=== PATIENT | female | born 1935 | race Caucasian/White ===

== ENCOUNTER → 2018-01-26 | Outpatient (CLI) | payer MEDICARE, BC ==
[~2018-01-26] MED LIST: ALEN10; ASPI81EC PO; BACITO TOP; CALCAVITDA PO; FOLI400 PO; LEVFLO500 PO; METF500 PO; MULVITMINF PO; PHENA200 PO; TOLT2
== END ==
LOC: LAB SHORT 16:44 → LAB 16:44
DX: L08.9 Local infection of the skin and subcutaneous tissue, unspecified (principal)
CPT/HCPCS: 87070; 87205

== ENCOUNTER 2019-02-01 08:31 | Day surgery (SDC) | payer MEDICARE, BC | END 2019-02-01 22:51 | disposition home or self-care (01) | LOC: MOI US 08:31 | DX: C50.911 Malignant neoplasm of unspecified site of right female breast (principal); Z17.0 Estrogen receptor positive status [ER+] | CPT/HCPCS: 19083; 77065; 88305; 88342; 88360; A4648 ==

== ENCOUNTER 2019-03-15 03:44 | Day surgery (SDC) | payer MEDICARE, BC ==
[2019-03-16] MEDS ORDERED: ERGO400 PO (15:42)
== END 2019-03-15 22:44 | disposition home or self-care (01) ==
LOC: MOI US 03:44
DX: C50.811 Malignant neoplasm of overlapping sites of right female breast (principal)
CPT/HCPCS: 19285; 77065

== ENCOUNTER 2019-04-09 07:51 | Day surgery (SDC) | payer MEDICARE, BC ==
[~2019-04-09] VITALS: Ht 165.1 cm; Wt 62.0 kg
[~2019-04-09 07:51] MED LIST changes: +ASCO500 PO; +CENTRUM SILVER1 EAC2 PO; +Combigan Eye Dro5 ML BOTHEYES; +ERGO400 PO; +HAIR FORMULA T1 EACH PO; +TUMS500 MG PO
--- NOTE | 2019-04-09 09:01 | NUR ---
SPOKE TO PATIENT IN RADIOLOGY WAITING ROOM ABOUT ALLERGIES/MEDICATIONS. PATIENT DENIES ALLERGY TO LISINOPRIL AND REQUESTS IT TO BE REMOVED FROM ALLERGY LIST.
--- NOTE | 2019-04-09 09:46 | NUR ---
Ambulatory in Day Surgery. History, Chart, Medications and Allergies reviewed before start of procedure. Lungs clear T/O to Auscultation. Patient confirms NPO status and agrees with scheduled surgery. Pre-Op teaching done. Pt verbalizes understanding. Patient States Post-Procedure ride home has been arranged.
--- NOTE | 2019-04-09 13:06 | NUR ---
PT REPORT TO LU[facility]S AT 1240. PT AWAKE AND TOLERATING PO WITHOUT DIFFICULTY, VSS. DRESSING TO R BREAST REMAINED CDI.
--- NOTE | 2019-04-09 13:30 | NUR ---
Discharge instructions reviewed with patient. Patient verbalizes understanding. Copy given to patient to take home. Discharged via wheelchair to private car for ride home. 1 [place] given for pain prior to discharge.
== END 2019-04-10 00:04 | disposition home or self-care (01) ==
LOC: ORSCMMR 07:51
PROVIDERS: Surgery
PROC: 0HBT0ZZ Excision of Right Breast, Open Approach (ICD-10-PCS; principal; 2019-04-09 09:45)
PROC: 07B50ZX Excision of Right Axillary Lymphatic, Open Approach, Diagnostic (ICD-10-PCS; principal; 2019-04-09 09:45)
DX: C50.811 Malignant neoplasm of overlapping sites of right female breast (principal); D36.0 Benign neoplasm of lymph nodes; E11.22 Type 2 diabetes mellitus with diabetic chronic kidney disease; N18.9 Chronic kidney disease, unspecified
CPT/HCPCS: 38792; 76098; 82947; 88307; 88342; A9270-GY; A9520; J0690; J1100; J2405; J2704; J3010; J7120; Q9968

== ENCOUNTER → 2019-04-12 | Outpatient (CLI) | payer MEDICARE, BC | END | disposition home or self-care (01) | LOC: LAB SHORT 15:09 → LAB 15:09 | DX: D48.5 Neoplasm of uncertain behavior of skin (principal) | CPT/HCPCS: 88305 ==

== ENCOUNTER 2019-05-03 10:54 | Day surgery (SDC) | payer MEDICARE, BC ==
[~2019-05-03] VITALS: Ht 165.1 cm; Wt 62.0 kg
--- NOTE | 2019-05-03 11:26 | NUR ---
Ambulatory in Day Surgery History, Chart, Medications and Allergies reviewed before start of procedure. Lungs clear T/O to Auscultation. Patient confirms NPO status and agrees with scheduled surgery. Pre-Op teaching done. Pt verbalizes understanding.
--- NOTE | 2019-05-03 13:11 | NUR ---
INTO STEP VIA [facility]. PT A&OX3. DENIES PAIN OR NAUSEA. RIGHT BREAST WITH 4X4 GAUZE IN PLACE THAT IS C/D/I. NO NOTED BLEEDING OR HEMATOMA. BREAST BINDER IN PLACE.
--- NOTE | 2019-05-03 13:40 | NUR ---
Patient up to Ambulate independently. Gait steady. Dressing to procedure site clean, dry, intact with no visible drainage, swelling, erythema or bruising noted. Discharge instructions reviewed with patient. Patient verbalizes understanding. Copy given to patient to take home. Discharged via wheelchair to private car for ride home.
== END 2019-05-03 13:40 | disposition home or self-care (01) ==
LOC: ORSCMMR 10:54 → ORD 12:30 → ORSCMMR 12:30
PROVIDERS: Surgery
PROC: 0HBT0ZZ Excision of Right Breast, Open Approach (ICD-10-PCS; principal; 2019-05-03 12:30)
DX: C50.811 Malignant neoplasm of overlapping sites of right female breast (principal); E11.9 Type 2 diabetes mellitus without complications; Z79.899 Other long term (current) drug therapy
CPT/HCPCS: 88305; J0690; J1100; J2370; J2405; J2704; J3010; J7120

== ENCOUNTER → 2019-05-04 | Outpatient (CLI) | payer MEDICARE, BC | LOC: PLD 15:10 → LAB SHORT 15:10 | DX: C44.629 Squamous cell carcinoma of skin of left upper limb, including shoulder (principal) | CPT/HCPCS: 88305 ==

== ENCOUNTER → 2023-10-01 | Outpatient (CLI) | payer MEDICARE, BC ==
[2023-10-01 14:16] LABS: Free Thyroxine 0.98 ng/dL (0.70-1.60)
[2023-10-01 14:20] LABS: Thyroid Stimulating Hormone 2.91 uIU/mL (0.360-4.800)
== END | disposition home or self-care (01) ==
LOC: LAB 11:36 → LAB SHORT 11:36
PROVIDERS: Family Medicine
DX: R53.83 Other fatigue (principal)
CPT/HCPCS: 84439; 84443